=== PATIENT | male | born 1950 | race Caucasian/White ===

== ENCOUNTER → 2017-02-13 | Outpatient (CLI) | payer OTHER, MEDICARE | LOC: FCPNEURO 23:07 | PROVIDERS: ATTEND Psychiatry & Neurology Sleep Medicine | DX: G47.33 Obstructive sleep apnea (adult) (pediatric) (principal); G47.61 Periodic limb movement disorder ==

== ENCOUNTER 2017-09-07 14:31 | Emergency (ER) | payer MEDICARE, OTHER ==
--- NOTE | 2017-09-07 14:40 | EDPHY ---
HPI/HX/ROS/PE/MDM Narrative: CHIEF COMPLAINT: Left lower abdominal, inability to urinate HPI: The patient is a 66 y/o male with a history of kidney stones complaining of left lower abdominal pain and inability to urinate, onset this morning. The intensity of the pain was similar to a prior kidney stone, however the kidney stone pain was located more in his back. While working outside today he developed the abdominal discomfort associated with sensation to urinate. However , when he tried to urinate he was only able to produce a small amount. He increased his water intake, but this did not help with the urinary urgency. Currently the pain has improved but he still has urinary urgency. Denies history of abdominal surgeries or prostate problems. Denies headache, numbness, paresthesias, chest pain, shortness of breath, bowel complaints, fever. REVIEW OF SYSTEMS: Aside from elements discussed in the HPI, a comprehensive 10-point review of systems was reviewed and is negative. PMH: Kidney stones, knee surgery, hypercholesteremia, GERD SOCIAL HISTORY: at bedside, lives in [place], self-employed PHYSICAL EXAM: General: Patient is alert, in no acute distress. ENT: Eyes are normal to inspection. ENT inspection normal. Neck: Normal inspection. Full range of motion. Respiratory: No respiratory distress. Breath sounds normal bilaterally. Cardiovascular: Regular rate and rhythm. Strong peripheral pulses. Normal cap refill. Abdomen: The abdomen is nontender to palpation. There are no peritoneal signs. There are normal bowel sounds. Back: Normal to inspection. No tenderness to palpation. Skin: Normal color. No rash. Warm and dry. Extremities: Normal appearance. Full range of motion. Neuro: Oriented x3. Normal motor function. Normal sensory function. ED Course: 1610: I spoke with radiologist who reports that the patient has a distal left ureter kidney stone per abdominopelvic CT. 1616: Reassessed patient and discussed imaging and laboratory findings. 30mg IV Toradol administered prior to discharge. I have advised him to strain his urine and follow up with a urologist. Return precautions provided patient is comfortable with this plan. - Data Points Imaging Results: Imaging Impressions Abdomen/Pelvis CT 09/07/17 15:07 Impression: 1. Small distal left ureteral stone about to pass into the urinary bladder. 2. Asymmetric left prostatomegaly and enlarged left seminal vesicle. Recommend correlation with digital rectal exam and serum PSA. Results called and discussed with Alonzo Lai MD, at 09/07/2017 16:10 Attention: This CT examination is specifically designed to evaluate patients who are clinically suspected of having acute obstructive uropathy. This examination does not use radiographic contrast, and as such, provides only a limited evaluation of the abdomen, pelvis and retroperitoneum. If there is further clinical suspicion for pathological conditions other than obstructive uropathy, a complete CT evaluation of the abdomen and pelvis utilizing intravenous, oral, and rectal contrast should be considered. General information for patients regarding this examination can be found at [email or web address]. If you have questions or comments about this report, please contact me at (hospital) or [phone] (cell). Imaging: Discussed imaging studies w/ call center receptionist Radiologist, I viewed and interpreted images myself Laboratory Results: Laboratory Results 09/07/17 14:50 09/07/17 09/07/17 09/07/17 15:01 14:50 14:40 WBC 7.37 10^3/uL 10^3/uL (3.80-9.50) RBC 5.17 10^6/uL 10^6/uL (4.40-6.38) Hgb 15.0 g/dL g/dL (13.7-17.5) POC Hgb 15.6 gm/dL gm/dL (13.7-17.5) Hct 45.7 % % (40.0-51.0) POC Hct 46 % % (40-51) MCV 88.4 fL fL (81.5-99.8) MCH 29.0 pg pg (27.9-34.1) MCHC 32.8 g/dL g/dL (32.4-36.7) RDW 13.7 % % (11.5-15.2) Plt Count 235 10^3/uL 10^3/uL (150-400) MPV 9.6 fL fL (8.7-11.7) Neut % (Auto) 69.3 % % (39.3-74.2) Lymph % (Auto) 19.5 % % (15.0-45.0) [place] % (Auto) 8.3 % % (4.5-13.0) Eos % (Auto) 1.6 % % (0.6-7.6) Baso % (Auto) 0.9 % % (0.3-1.7) Nucleat RBC Rel Count 0.0 % % (0.0-0.2) Absolute Neuts (auto) 5.10 10^3/uL 10^3/uL (1.70-6.50) Absolute Lymphs (auto) 1.44 10^3/uL 10^3/uL (1.00-3.00) Absolute Monos (auto) 0.61 10^3/uL 10^3/uL (0.30-0.80) Absolute Eos (auto) 0.12 10^3/uL 10^3/uL (0.03-0.40) Absolute Basos (auto) 0.07 10^3/uL 10^3/uL (0.02-0.10) Absolute Nucleated RBC 0.00 10^3/uL 10^3/uL (0-0.01) Immature Gran % 0.4 % % (0.0-1.1) Immature Gran # 0.03 10^3/uL 10^3/uL (0.00-0.10) POC Sodium 146 mEq/L H mEq/L (135-145) POC Potassium 3.6 mEq/L mEq/L (3.3-5.0) POC Chloride 107 mEq/L mEq/L (97-110) POC BUN 24 mg/dL H mg/dL (7-23) POC Creatinine 1.2 mg/dL mg/dL (0.7-1.3) POC Glucose 94 mg/dL mg/dL (70-100) Urine Color JAIME Urine Appearance HAZY Urine pH 5.0 (5.0-7.5) Ur Specific [place] 1.031 H (1.002-1.030) Urine Protein NEGATIVE (NEGATIVE) Urine Ketones TRACE H (NEGATIVE) Urine Blood 2+ H (NEGATIVE) Urine Nitrate NEGATIVE (NEGATIVE) Urine Bilirubin NEGATIVE (NEGATIVE) Urine Urobilinogen 2.0 EU H EU (0.2-1.0) Ur Leukocyte Esterase NEGATIVE (NEGATIVE) Urine RBC 25-50 /hpf H /hpf (0-3) Urine WBC 1-3 /hpf /hpf (0-3) Ur Epithelial Cells TRACE /lpf /lpf (NONE-1+) Calcium Oxalate Crystal PRESENT /hpf /hpf (NONE-1+) Urine Mucus TRACE /lpf /lpf (NONE-1+) Urine Glucose NEGATIVE (NEGATIVE) Medications Given: Discontinued Medications Sodium Chloride (Ns) 1,000 mls @ 0 mls/hr IV EDNOW ONE; Wide Open PRN Reason: Protocol Stop: 09/07/17 14:53 Last Admin: 09/07/17 15:09 Dose: 1,000 mls Point of Care Test Results: Chemistry 09/07/17 15:01 POC Sodium 146 mEq/L H mEq/L (135-145) POC Potassium 3.6 mEq/L mEq/L (3.3-5.0) POC Chloride 107 mEq/L mEq/L (97-110) POC BUN 24 mg/dL H mg/dL (7-23) POC Creatinine 1.2 mg/dL mg/dL (0.7-1.3) POC Glucose 94 mg/dL mg/dL (70-100) ISTAT H&H 09/07/17 15:01 POC Hgb 15.6 gm/dL gm/dL (13.7-17.5) POC Hct 46 % % (40-51) General Time Seen by Provider: 09/07/17 14:38 Initial Vital Signs: Initial Vital Signs Temperature (C) 36.5 C 09/07/17 14:35 Heart Rate 68 09/07/17 14:35 Respiratory Rate 18 09/07/17 14:35 Blood Pressure 129/77 H 09/07/17 14:35 O2 Sat (%) 97 09/07/17 14:35 O2 Delivery Mode Room Air Allergies/Adverse Reactions: No Known Allergies Allergy (Verified 09/07/17 14:33) Home Medications: Medication Instructions Recorded Aspirin EC [Aspirin EC 81 mg (OTC)] 81 mg PO DAILY 05/09/13 Lactobacillus Acidophilus 1 each PO BIDMEAL 05/09/13 [Probiotic] Pantoprazole Sodium [Protonix 40mg 40 mg PO DAILY 05/09/13 (RX)] Atorvastatin Calcium 09/07/17 Ketorolac Tromethamine 10 mg PO Q6H PRN #16 tab 09/07/17 MIRTAZAPINE 09/07/17 oxyCODONE/APAP 5/325 [Percocet 1 - 2 tab PO Q4H PRN #7 tab 09/07/17 5/325] Departure - Departure Disposition: Home, Routine, Self-Care Clinical Impression: Kidney stone on left side Condition: Good Instructions: Kidney Stones (ED), How to Strain Your Urine (ED) Additional Instructions: Take Toradol and Percocet as prescribed for pain. Followup with your urologist within one week, you have been referred to Dr. Christopher. Return to the emergency apartment for fever, severe pain, inability to urinate or other concerns. Strain urine to try and catch the kidney stone and bring this to the urology appointment. Referrals: [facility] [Primary Care Provider] - As per Instructions Hilda Christopher MD [Medical Doctor] - As per Instructions Prescriptions: Ketorolac Tromethamine 10 mg PO Q6H PRN #16 tab PRN Reason: Pain/inflammation oxyCODONE/APAP 5/325 [Percocet 5/325] 1 - 2 tab PO Q4H PRN #7 tab PRN Reason: Pain, Severe Report Scribed for: Alonzo Lai Report Scribed by: Rosalva Muir Date of Report: 09/07/17 Time of Report: 14:40 Physician Review and Approval Statement: Portions of this note were transcribed by an ED scribe. I personally performed the history, physical exam, and medical decision making; and confirm the accuracy of the information in the transcribed note.
[2017-09-07] MEDS ORDERED: NS 1,000 ML IV ONE (14:52)
[2017-09-07 15:06] LABS: PLATELET COUNT 235 10^3/uL (150-400)
[2017-09-07] MEDS ORDERED: KETOROLAC 30 MG/1 ML SDV IVP ONE (16:24)
[2017-09-07 16:59] VITALS: BP 134/81
== END 2017-09-07 16:52 | disposition home or self-care (01) ==
DX: N20.0 Calculus of kidney (principal); E86.9 Volume depletion, unspecified; Z79.82 Long term (current) use of aspirin
CPT/HCPCS: 74176; 96361; 96374; 99285; J1885; 82435-PO; 82565-PO; 82947-PO; 84132-PO; 84295-PO; 84520-PO; 85014-PO

== ENCOUNTER → 2017-09-09 | Outpatient (CLI) | payer OTHER | LOC: FIMAGING 09:09 | PROVIDERS: ATTEND Specialist | DX: N20.1 Calculus of ureter (principal) ==